=== PATIENT | female | born 1995 | race Caucasian/White ===

== ENCOUNTER 2020-01-31 12:50 | Emergency (ER) | payer SELFPAY ==
[~2020-01-31] VITALS: Ht 167.6 cm; Wt 77.3 kg
[2020-01-31 12:54] VITALS: BP 126/88; TEMP 98.7
[2020-01-31 13:26] LABS: BASO % 0.3 % (0.0-2.0); EOS % 0.2 % (0-4.0); GRAN # 10.8 (1.4-6.5); GRAN % 85.1 % (42.2-75.2); HEMATOCRIT 43.9 % (37.0-47.0); HEMOGLOBIN 15.6 g/dl (12.5-16.0); LYMPH # 1.3 (1.2-3.4); MEAN CELL VOLUME 86 fl (80.0-100.0); MEAN CORPUSCULAR HEMOGLOBIN 31 pg (27.0-31.0); MEAN CORPUSCULAR HGB CONC 36 g/dl (33.0-37.0); MEAN PLATELET VOLUME 10.7 fl (7.4-10.4); MONO # 0.5 (0.1-0.6); MONO % 4.1 % (1.7-9.3); PLATELET COUNT 172 K/mm3 (130-400); RED BLOOD COUNT 5.11 M/mm3 (4.10-5.30); REDCELL DISTRIBUTION WIDTH-CV 11.9 % (11.5-14.5)
[2020-01-31 13:35] LABS: ALANINE AMINOTRANSFERASE 15 U/L (4-34); ALBUMIN 4.7 gm/dL (3.5-5.0); ALKALINE PHOSPHATASE 43 U/L (50-136); ANION GAP 12 mmol/L (7-16); AST,SGOT 21 U/L (15-37); BILIRUBIN,TOTAL 0.8 mg/dL (0.0-1.0); BLOOD UREA NITROGEN 11 mg/dL (7-17); CARBON DIOXIDE 23 mmol/L (22-30); CHLORIDE 102 mmol/L (98-107); CREATININE, serum 0.58 (0.52-1.25); GLUCOSE 100 mg/dL (74-106); POTASSIUM 3.6 mmol/L (3.4-5.0); SODIUM 137 mmol/L (137-145)
[2020-01-31 13:36] LABS: C-REACTIVE PROTEIN < 0.5 mg/dL (0.0-0.9)
[2020-01-31 13:37] LABS: COLLECTION METHOD CLEAN CATCH
[2020-01-31 13:47] LABS: MUCOUS Present /lpf; PH 5 (5-8); URINE APPEARANCE Hazy; URINE BACTERIA Rare /hpf; URINE BILIRUBIN Negative (NEGATIVE); URINE BLOOD Negative (NEGATIVE); URINE COLOR Amber; URINE GLUCOSE Negative (NEGATIVE); URINE KETONE 2+ (NEGATIVE); URINE LEUKOCYTE ESTERASE Negative (NEGATIVE); URINE NITRATE Negative (NEGATIVE); URINE PROTEIN(semi-quant) 1+ (NEGATIVE); URINE RBC 0-2 /hpf; URINE UROBILINOGEN Negative (NEGATIVE)
[2020-01-31 14:17] LABS: HCG,QUANTITATIVE 56893 mIU/mL (0-5)
[2020-01-31] MEDS ORDERED: PHENERGAN 25 TA25 MG PO (14:51)
[2020-01-31 16:00] VITALS: PULSE 87
== END 2020-01-31 16:00 | disposition home or self-care (01) ==
LOC: COL.ER 12:50
PROVIDERS: Emergency Medicine
DX: O21.9 Vomiting of pregnancy, unspecified (principal); O99.331 Smoking (tobacco) complicating pregnancy, first trimester; F17.210 Nicotine dependence, cigarettes, uncomplicated; Z3A.10 10 weeks gestation of pregnancy
CPT/HCPCS: J2550; J7030

== ENCOUNTER 2020-04-13 20:51 | Emergency (ER) | payer MEDICAID ==
[~2020-04-13] VITALS: Ht 167.6 cm; Wt 77.3 kg
[~2020-04-13 20:51] MED LIST: PHENERGAN 25 TA25 MG PO
[2020-04-13 20:54] VITALS: TEMP 98.5
[2020-04-13 21:35] LABS: COLLECTION METHOD CLEAN CATCH
[2020-04-13 21:41] LABS: BASO % 0.3 % (0.0-2.0); EOS % 0.4 % (0-4.0); GRAN % 80.5 % (42.2-75.2); HEMATOCRIT 41.1 % (37.0-47.0); HEMOGLOBIN 14.5 g/dl (12.5-16.0); LYMPH # 1.5 (1.2-3.4); LYMPH % 13.8 % (20.0-51.0); MEAN CELL VOLUME 87 fl (80.0-100.0); MEAN CORPUSCULAR HEMOGLOBIN 31 pg (27.0-31.0); MEAN CORPUSCULAR HGB CONC 35 g/dl (33.0-37.0); MEAN PLATELET VOLUME 11.3 fl (7.4-10.4); MONO # 0.5 (0.1-0.6); MONO % 4.6 % (1.7-9.3); PLATELET COUNT 157 K/mm3 (130-400); RED BLOOD COUNT 4.72 M/mm3 (4.10-5.30); REDCELL DISTRIBUTION WIDTH-CV 12.7 % (11.5-14.5)
[2020-04-13 21:43] LABS: MUCOUS Present /lpf; PH 5 (5-8); URINE APPEARANCE Cloudy; URINE BACTERIA Rare /hpf; URINE BILIRUBIN Negative (NEGATIVE); URINE BLOOD Negative (NEGATIVE); URINE COLOR Amber; URINE GLUCOSE Negative (NEGATIVE); URINE KETONE 2+ (NEGATIVE); URINE LEUKOCYTE ESTERASE Trace (NEGATIVE); URINE NITRATE Negative (NEGATIVE); URINE PROTEIN(semi-quant) 2+ (NEGATIVE); URINE UROBILINOGEN Negative (NEGATIVE)
[2020-04-13 21:50] LABS: ALBUMIN 4.3 gm/dL (3.5-5.0); BILIRUBIN,TOTAL 0.8 mg/dL (0.0-1.0); C-REACTIVE PROTEIN 1.2 mg/dL (0.0-0.9); CALCIUM 9.1 mg/dL (8.4-10.2); CREATININE, serum 0.57 (0.52-1.25); POTASSIUM 3.2 mmol/L (3.4-5.0); TOTAL PROTEIN 7.6 gm/dL (6.4-8.2)
[2020-04-13] MEDS ORDERED: PEPCID40 MG PO (22:16)
[2020-04-13] MEDS ORDERED: ZOFRAN ODT4 MG PO (22:16)
[2020-04-13 23:00] VITALS: BP 113/58; PULSE 72
== END 2020-04-13 23:00 | disposition home or self-care (01) ==
LOC: COL.ER 20:51
PROVIDERS: Emergency Medicine
DX: O21.9 Vomiting of pregnancy, unspecified (principal); O26.892 Other specified pregnancy related conditions, second trimester; E87.6 Hypokalemia; Z3A.19 19 weeks gestation of pregnancy
CPT/HCPCS: J2405; J2550; J7030

== ENCOUNTER 2020-08-01 10:16 | Emergency (ER) | payer MEDICAID ==
[~2020-08-01] VITALS: Ht 167.6 cm; Wt 77.3 kg
[~2020-08-01 10:16] MED LIST changes: +PEPCID40 MG PO; +ZOFRAN ODT4 MG PO
[2020-08-01 10:21] VITALS: BP 115/80; TEMP 98.5
[2020-08-01] MEDS ORDERED: AMOXICILLIN 8751 TAB PO (10:57)
[2020-08-01] MEDS ORDERED: NORCO 325 MG-51 TAB PO (12:03)
[2020-08-01 12:08] VITALS: PULSE 85
== END 2020-08-01 12:08 | disposition home or self-care (01) ==
LOC: COL.ER 10:16
DX: O99.613 Diseases of the digestive system complicating pregnancy, third trimester (principal); O99.332 Smoking (tobacco) complicating pregnancy, second trimester; K04.7 Periapical abscess without sinus; Z3A.33 33 weeks gestation of pregnancy

== ENCOUNTER 2020-08-30 20:20 | Emergency (ER) | payer MEDICAID ==
[~2020-08-30] VITALS: Ht 167.6 cm; Wt 78.6 kg
[~2020-08-30 20:20] MED LIST changes: +AMOXICILLIN 8751 TAB PO; +NORCO 325 MG-51 TAB PO
[2020-08-30 20:31] VITALS: TEMP 97.7
[2020-08-30] MEDS ORDERED: CLEOCIN HCL300 MG PO (21:10)
[2020-08-30 21:30] VITALS: BP 126/83; PULSE 81
== END 2020-08-30 21:30 | disposition home or self-care (01) ==
LOC: COL.ER 20:20
DX: K02.9 Dental caries, unspecified (principal); F17.210 Nicotine dependence, cigarettes, uncomplicated

== ENCOUNTER → 2020-09-14 | Outpatient (CLI) | payer MEDICAID ==
[~2020-09-14] MED LIST changes: +CLEOCIN HCL300 MG PO; +IBU600 MG PO
== END | disposition still patient (30) ==
LOC: ZCOL.LAB 01:39
DX: Z20.828 Contact with and (suspected) exposure to other viral communicable diseases (principal)

== ENCOUNTER 2020-09-25 08:49 | Inpatient (IN) | payer MEDICAID ==
[2020-09-25] VITALS (19 sets, daily range): BP systolic 107–158; BP diastolic 60–105; PULSE 47–78; TEMP 97.8–98.8
[~2020-09-25 08:49] MED LIST changes: -IBU600 MG PO
--- NOTE | 2020-09-25 08:55 | NUR ---
Presents to labor and delivery. States having contraction. Vag exam done, dilated to four, eighty percent effaced, minus two. Breathes through contractions. Dr. Collins called about patient. Let her know that this nurse had some bleeding on glove after check. Patient also states had some bleeding this morning when going to the bathroom.
[2020-09-25 09:36] LABS: BASO % 0.2 % (0.0-2.0); EOS # 0.1 (0.0-0.7); EOS % 0.6 % (0-4.0); GRAN # 7.1 (1.4-6.5); GRAN % 76.9 % (42.2-75.2); HEMOGLOBIN 11.5 g/dl (12.5-16.0); LYMPH # 1.4 (1.2-3.4); LYMPH % 15.4 % (20.0-51.0); MEAN CELL VOLUME 81 fl (80.0-100.0); MEAN CORPUSCULAR HEMOGLOBIN 27 pg (27.0-31.0); MEAN CORPUSCULAR HGB CONC 33 g/dl (33.0-37.0); MEAN PLATELET VOLUME 11.1 fl (7.4-10.4); MONO # 0.6 (0.1-0.6); MONO % 6.5 % (1.7-9.3); PLATELET COUNT 158 K/mm3 (130-400); RED BLOOD COUNT 4.28 M/mm3 (4.10-5.30)
[2020-09-25 09:42] LABS: HEMATOCRIT 34.5 % (37.0-47.0)
--- NOTE | 2020-09-25 10:00 | NUR ---
Sits up for epidural. See anesthesia notes please.
[2020-09-25 10:13] LABS: TRICYCLIC ANTIDEPRESS URINE NEGATIVE
--- NOTE | 2020-09-25 10:15 | NUR ---
Lies down after epidural.
--- NOTE | 2020-09-25 10:45 | NUR ---
Having emisis. 1052 Zofran 4 mg iv given as ordered.
--- NOTE | 2020-09-25 12:00 | NUR ---
1210 heart tones down in the 100s, repositioned patient in bed. Vag exam done, dilated.
--- NOTE | 2020-09-25 12:15 | NUR ---
Dr. Collins here, states still a bag of water, arom done. Moderate amount of clear fluid noted. 1233 Spontaneous delivery of baby boy by Dr. Collins. 1236 Spontaneous delivery of placenta. Pitocin started at 333 ccs an hour as ordered and per policy.
--- NOTE | 2020-09-25 13:30 | NUR ---
Dr. Collins called and updated on patients bleeding. Let her know that she is having more bleeding. 1338 Methergine 0.2 mg im given as ordered. Fundus massaged to firm.
--- NOTE | 2020-09-25 14:00 | NUR ---
Having emisis. Tums two given per request. Crackers given.
--- NOTE | 2020-09-25 15:30 | NUR ---
Ambulates to the bathroom, tolerates well. Voids moderate amount noted. Kristin-care shown and done by patient. Ambulates to room 208.
--- NOTE | 2020-09-25 16:00 | NUR ---
Pitocin with 30 megan units in 500cc lactated ringers. Started at 333ccs an hour as ordered.
[2020-09-26] VITALS: BP 100/66; PULSE 70; TEMP 98
[2020-09-26 05:30] VITALS: BP 105/69; PULSE 74; TEMP 98.3
[2020-09-26 07:47] VITALS: BP 122/81; PULSE 69; TEMP 98.6
[2020-09-26] MEDS ORDERED: IBU600 MG PO (10:19)
--- NOTE | 2020-09-26 12:30 | NUR ---
Consult recieved for patient with substance in system. Patient labs indicated marijuana use. Both her and baby test positive for Marijuana. SW met with patient about screen. Patient confirms use and that she uses and does not see a problem with smoking Marijuana. Patient reports that she has smokes with every and this does not make her a bad parent. Patient indicated that she does not have a desire to stop unless she had too. Patient reports that she resides in [place] with her Boyfriend and Father of Baby Sean Cousins and thier children. Patient denies having any concerns with taking baby home. Patient reports craving and crankiness,after 3 days of non-use but denies it being a problem. Patient reports that she does not have a PCP and her ob was Dr. Burnette but has not decided on pediatric care. Patient reports that she has supplies without any additional concers. Patient reports her phone is . Patient reports that she is a stay at home and BF works as a floorer and makes good money. Patient reports concerns of baby being taken for marijuana use. Educated on process of screening with CPS. Report made see baby chart. a concerns. Patient reports
--- NOTE | 2020-09-26 13:00 | NUR ---
1300-Patient and spouse viewed period of purple cry video. Reveiwed discharge instructions with patient. Provided follow up appointment sheet and newly prescribed ibuprophen information sheet. Discharged to boarder status per MD orders.
== END 2020-09-26 13:30 | disposition home or self-care (01) | DRG 806 ==
LOC: LDRO 08:49 → LDR 09:20 → OB 13:30
PROVIDERS: Obstetrics & Gynecology; ADMIT Obstetrics & Gynecology
PROC: 10E0XZZ Delivery of Products of Conception, External Approach (ICD-10-PCS; principal; 2020-09-24)
PROC: 10907ZC Drainage of Amniotic Fluid, Therapeutic from Products of Conception, Via Natural or Artificial Opening (ICD-10-PCS; 2020-09-24)
PROC: 3E033VJ Introduction of Other Hormone into Peripheral Vein, Percutaneous Approach (ICD-10-PCS; 2020-09-24)
DX: O48.0 Post-term pregnancy (principal); O99.324 Drug use complicating childbirth; Z37.0 Single live birth; O99.824 Streptococcus B carrier state complicating childbirth; F12.90 Cannabis use, unspecified, uncomplicated; Z3A.41 41 weeks gestation of pregnancy
CPT/HCPCS: J2210; J2405; J2540; J2590; J2795; J7120

== ENCOUNTER 2021-02-09 16:37 | Emergency (ER) | payer MEDICAID ==
[~2021-02-09] VITALS: Ht 167.6 cm; Wt 76.7 kg
[~2021-02-09 16:37] MED LIST changes: +IBU600 MG PO
[2021-02-09 16:56] LABS: COLLECTION METHOD CLEAN CATCH
[2021-02-09 17:12] LABS: MUCOUS Present /lpf; PH 5 (5-8); URINE APPEARANCE Clear; URINE BACTERIA None Seen /hpf; URINE BILIRUBIN Negative (NEGATIVE); URINE BLOOD Negative (NEGATIVE); URINE COLOR Yellow; URINE GLUCOSE Negative (NEGATIVE); URINE KETONE Negative (NEGATIVE); URINE LEUKOCYTE ESTERASE Negative (NEGATIVE); URINE NITRATE Negative (NEGATIVE); URINE PROTEIN(semi-quant) Negative (NEGATIVE); URINE RBC 0-2 /hpf; URINE UROBILINOGEN Negative (NEGATIVE)
[2021-02-09 18:22] LABS: HEMOGLOBIN 13.2 g/dl (12.5-16.0); MEAN CELL VOLUME 81 fl (80.0-100.0); MEAN CORPUSCULAR HEMOGLOBIN 27 pg (27.0-31.0); MEAN CORPUSCULAR HGB CONC 34 g/dl (33.0-37.0); MEAN PLATELET VOLUME 10.3 fl (7.4-10.4); PLATELET COUNT 132 K/mm3 (130-400); RED BLOOD COUNT 4.83 M/mm3 (4.10-5.30); REDCELL DISTRIBUTION WIDTH-CV 14.9 % (11.5-14.5)
[2021-02-09 18:32] LABS: ALBUMIN 4.6 gm/dL (3.5-5.0); BILIRUBIN,TOTAL 0.6 mg/dL (0.0-1.0); CALCIUM 9.3 mg/dL (8.4-10.2); CREATININE, serum 0.64 (0.52-1.25); POTASSIUM 3.5 mmol/L (3.4-5.0); TOTAL PROTEIN 7.7 gm/dL (6.4-8.2)
[2021-02-09 20:29] LABS: LYMPHOCYTE 8 % (20.0-51.0); NEUTROPHILS 88 % (42.0-75.2)
[2021-02-09 20:30] LABS: PLATELET ESTIMATE NORMAL (NORMAL)
[2021-02-09] MEDS ORDERED: PRIL40 PO (21:00)
[2021-02-09 21:06] VITALS: BP 127/81; PULSE 74; TEMP 98.1
== END 2021-02-09 21:06 | disposition home or self-care (01) ==
LOC: COL.ER 16:37
PROVIDERS: Emergency Medicine; Nurse Practitioner Primary Care
DX: R10.13 Epigastric pain (principal); K92.0 Hematemesis; F17.210 Nicotine dependence, cigarettes, uncomplicated; Z32.02 Encounter for pregnancy test, result negative
CPT/HCPCS: J2270; J2405; J2550; J7030; Q9967

== ENCOUNTER 2021-03-04 09:39 | Emergency (ER) | payer MEDICAID ==
[~2021-03-04] VITALS: Ht 167.6 cm; Wt 72.7 kg
[~2021-03-04 09:39] MED LIST changes: +PRIL40 PO
[2021-03-04 09:54] VITALS: TEMP 97.5
[2021-03-04 10:29] LABS: COLLECTION METHOD CLEAN CATCH
[2021-03-04 10:32] LABS: BASO % 0.2 % (0.0-2.0); EOS # 0.1 (0.0-0.7); GRAN # 6.8 (1.4-6.5); GRAN % 81.1 % (42.2-75.2); HEMOGLOBIN 11.7 g/dl (12.5-16.0); LYMPH # 1.1 (1.2-3.4); LYMPH % 13.1 % (20.0-51.0); MEAN CELL VOLUME 82 fl (80.0-100.0); MEAN CORPUSCULAR HEMOGLOBIN 27 pg (27.0-31.0); MEAN CORPUSCULAR HGB CONC 33 g/dl (33.0-37.0); MEAN PLATELET VOLUME 10.8 fl (7.4-10.4); MONO # 0.4 (0.1-0.6); MONO % 4.2 % (1.7-9.3); PLATELET COUNT 162 K/mm3 (130-400); RED BLOOD COUNT 4.37 M/mm3 (4.10-5.30); REDCELL DISTRIBUTION WIDTH-CV 13.6 % (11.5-14.5)
[2021-03-04 10:33] LABS: HEMATOCRIT 35.9 % (37.0-47.0)
[2021-03-04 10:36] LABS: MUCOUS Present /lpf; PH 6 (5-8); URINE APPEARANCE Hazy; URINE BACTERIA None Seen /hpf; URINE BILIRUBIN Negative (NEGATIVE); URINE BLOOD Negative (NEGATIVE); URINE COLOR Yellow; URINE GLUCOSE Negative (NEGATIVE); URINE KETONE Negative (NEGATIVE); URINE LEUKOCYTE ESTERASE Negative (NEGATIVE); URINE NITRATE Negative (NEGATIVE); URINE PROTEIN(semi-quant) Negative (NEGATIVE); URINE RBC 0-2 /hpf; URINE UROBILINOGEN Negative (NEGATIVE)
[2021-03-04 10:45] LABS: ALANINE AMINOTRANSFERASE 24 U/L (4-34); ALBUMIN 3.9 gm/dL (3.5-5.0); ALKALINE PHOSPHATASE 53 U/L (50-136); ANION GAP 5 mmol/L (7-16); AST,SGOT 84 U/L (15-37); BILIRUBIN,TOTAL 0.4 mg/dL (0.0-1.0); BLOOD UREA NITROGEN 11 mg/dL (7-17); C-REACTIVE PROTEIN < 0.5 mg/dL (0.0-0.9); CALCIUM 8.8 mg/dL (8.4-10.2); CARBON DIOXIDE 25 mmol/L (22-30); CHLORIDE 108 mmol/L (98-107); CREATININE, serum 0.68 (0.52-1.25); GLUCOSE 99 mg/dL (74-106); LIPASE 259 U/L (23-300); POTASSIUM 3.7 mmol/L (3.4-5.0); SODIUM 139 mmol/L (137-145); TOTAL PROTEIN 6.8 gm/dL (6.4-8.2)
[2021-03-04] MEDS ORDERED: PRIL40 PO (11:18)
[2021-03-04 11:30] VITALS: BP 114/74; PULSE 50
== END 2021-03-04 11:35 | disposition home or self-care (01) ==
LOC: COL.ER 09:39
PROVIDERS: Physician Assistant
DX: K29.70 Gastritis, unspecified, without bleeding (principal); F17.210 Nicotine dependence, cigarettes, uncomplicated; Z32.02 Encounter for pregnancy test, result negative
CPT/HCPCS: C9113